=== PATIENT | female | born 1960 | race African-American/Black ===

== ENCOUNTER 2017-08-10 08:11 | Emergency (ER) | payer OTHER ==
[~2017-08-10] VITALS: Ht 170.2 cm; Wt 111.8 kg
[~2017-08-10 08:11] MED LIST: VITAMINS PO
[2017-08-10 08:16] VITALS: BP 129/106
== END 2017-08-10 10:32 | disposition home or self-care (01) ==
LOC: EMS 08:13
DX: K04.7 Periapical abscess without sinus (principal); I10 Essential (primary) hypertension; R11.2 Nausea with vomiting, unspecified; R19.7 Diarrhea, unspecified; R07.9 Chest pain, unspecified; G89.29 Other chronic pain; F17.210 Nicotine dependence, cigarettes, uncomplicated
CPT/HCPCS: 99283

== ENCOUNTER 2019-01-02 06:28 | Emergency (ER) | payer SELFPAY ==
[~2019-01-02] VITALS: Ht 170.2 cm; Wt 118.2 kg
[2019-01-02 07:23] LABS: BASOPHILS % (AUTO) 0.6 % (0.0-2.0); HEMATOCRIT 45.8 % (36-46); LYMPHOCYTES # (AUTO) 1.4 K/uL (1.0-4.8); LYMPHOCYTES % (AUTO) 20.3 % (22.0-44.0); MEAN CORPUSCULAR HEMOGLOBIN 28.6 pg (26.0-34.0); MEAN CORPUSCULAR HGB CONC 32.7 G/dL (31.0-37.0); MEAN CORPUSCULAR VOLUME 87 fL (80-100); MONOCYTES # (AUTO) 0.7 K/uL (0.1-1.0); MONOCYTES % (AUTO) 9.9 % (2.0-9.0); NEUTROPHILS # (AUTO) 4.6 K/uL (1.8-7.7); NEUTROPHILS % (AUTO) 68.2 % (40.0-70.0); PLATELET COUNT (AUTO) 272 K/uL (150-450); RED BLOOD CELL COUNT(AUTO) 5.24 MIL/uL (4.00-5.20); RED CELL DISTRIBUTION WIDTH 15.5 % (11.5-14.5)
[2019-01-02 07:32] LABS: ANION GAP 10 mmol/L (8-16); CALCIUM, TOTAL 9.6 mg/dL (8.8-10.5); CARBON DIOXIDE 25 mmol/L (22-29); CHLORIDE 105 mmol/L (98-107); CREATININE 0.88 mg/dL (0.60-1.30); GLOMERULAR FILTR. RATE CALC > 60 mL/min (>60); GLUCOSE,RANDOM 132 mg/dL (70-110); POTASSIUM 3.5 mmol/L (3.5-5.1); SODIUM SERUM 140 mmol/L (136-145); UREA NITROGEN, BLOOD 8 mg/dL (7-18)
[2019-01-02 07:39] LABS: ALANINE AMINOTRANSFERASE 26 U/L (12-78); ALBUMIN 3.7 g/dL (3.4-5.0); ALKALINE PHOSPHATASE 86 U/L (46-116); ASPARTATE AMINOTRANSFERASE 25 U/L (15-37); BILIRUBIN,TOTAL 0.6 mg/dL (0.1-1.0); TOTAL PROTEIN, SERUM 7.8 g/dL (6.4-8.2)
[2019-01-02 09:44] VITALS: BP 120/68
== END 2019-01-02 09:47 | disposition home or self-care (01) ==
LOC: EMS 06:29
DX: F43.9 Reaction to severe stress, unspecified (principal); M71.22 Synovial cyst of popliteal space [Baker], left knee; R60.0 Localized edema; F17.210 Nicotine dependence, cigarettes, uncomplicated
CPT/HCPCS: 36415; 80053; 83880; 85025; 93970; 99284; 99406; G0480

== ENCOUNTER 2019-03-19 08:03 | Inpatient (IN) | payer SELFPAY ==
[~2019-03-19] VITALS: Ht 180.3 cm; Wt 106.6 kg
[2019-03-19] VITALS (10 sets, daily range): BP systolic 111–154; BP diastolic 70–99
[2019-03-19] MEDS ORDERED: ATORVASTATIN CALCIUM 40 MG TABLET ONE (08:08)
[2019-03-19] MEDS ORDERED: TICAGRELOR 90 MG TABLET ONE (08:08)
[2019-03-19] MEDS ORDERED: IBUP-1506 PO (08:08)
[2019-03-19] MEDS ORDERED: HEPARIN SODIUM,PORCINE 5,000 UNITS/ML VIAL ONE (08:08)
[2019-03-19] MEDS ORDERED: D5W IV ONE (08:09)
[2019-03-19] MEDS ORDERED: HEPARIN SODIUM IV ONE (08:09)
[2019-03-19] MEDS ORDERED: TICAGRELOR 90 MG TABLET PO ONE (08:15)
[2019-03-19] MEDS ORDERED: MORPHINE SULFATE 2 MG/ML SYRINGE IVP ONE ×2 (08:15→08:20)
[2019-03-19] MEDS ORDERED: ATORVASTATIN CALCIUM 40 MG TABLET PO ONE (08:15)
[2019-03-19] MEDS ORDERED: NITROGLYCERIN 50 MG/D5% WATER 250 ML IV PRN (08:15)
[2019-03-19] MEDS ORDERED: SODIUM CHLORIDE 0.9% 1,000 ML IV ONE (08:15)
[2019-03-19] MEDS ORDERED: HEPARIN SODIUM,PORCINE 5,000 UNITS/ML VIAL IVP ONE (08:15)
[2019-03-19] MEDS ORDERED: FentaNYL CITRATE-PF 100 MCG/2 ML VIAL ONE (08:16)
[2019-03-19] MEDS ORDERED: MIDAZOLAM HCL 2 MG/2 ML VIAL ONE (08:16)
[2019-03-19] MEDS ORDERED: MORPHINE SULFATE 4 MG/ML SYRINGE ONE (08:16)
[2019-03-19] MEDS ORDERED: SODIUM BICARBONATE 50 MEQ/50 ML VIAL ONE (08:17)
[2019-03-19] MEDS ORDERED: LIDOCAINE/PF 1% 30 ML VIAL ONE (08:17)
[2019-03-19 08:18] LABS: BASOPHILS % (AUTO) 0.7 % (0.0-2.0); EOSINOPHILS % (AUTO) 1.9 % (1.0-6.0); HEMATOCRIT 42.4 % (36-46); HEMOGLOBIN 14.4 g/dL (12.0-16.0); LYMPHOCYTES # (AUTO) 2.8 K/uL (1.0-4.8); LYMPHOCYTES % (AUTO) 39.3 % (22.0-44.0); MEAN CORPUSCULAR HEMOGLOBIN 29.5 pg (26.0-34.0); MEAN CORPUSCULAR HGB CONC 33.8 G/dL (31.0-37.0); MEAN CORPUSCULAR VOLUME 87 fL (80-100); MONOCYTES % (AUTO) 13.7 % (2.0-9.0); NEUTROPHILS # (AUTO) 3.1 K/uL (1.8-7.7); NEUTROPHILS % (AUTO) 44.4 % (40.0-70.0); PLATELET COUNT (AUTO) 271 K/uL (150-450); RED BLOOD CELL COUNT(AUTO) 4.87 MIL/uL (4.00-5.20); RED CELL DISTRIBUTION WIDTH 14.9 % (11.5-14.5)
[2019-03-19] MEDS ORDERED: IOHEXOL 300 MG/ML 150 ML VIAL ONE (08:18)
[2019-03-19] MEDS ORDERED: IOHEXOL 300 MG/ML 100 ML VIAL ONE (08:18)
[2019-03-19] MEDS ORDERED: HEPARIN SODIUM 1000 UNITS/NS 1,000 ML ONE (08:18)
[2019-03-19] MEDS ORDERED: VERAPAMIL HCL 2.5 MG/ML 2 ML VIAL ONE (08:19)
[2019-03-19] MEDS ORDERED: HEPARIN SODIUM,PORCINE 1,000 UNITS/ML 10 ML VIAL ONE (08:19)
[2019-03-19] MEDS ORDERED: PHENYLEPHRINE 200 MG/D5%-WATER 250 ML IV PRN (08:30)
[2019-03-19 08:35] LABS: ANION GAP 11 mmol/L (8-16); CARBON DIOXIDE 26 mmol/L (22-29); CHLORIDE 104 mmol/L (98-107); CREATININE 0.84 mg/dL (0.60-1.30); GLOMERULAR FILTR. RATE CALC > 60 mL/min (>60); GLUCOSE,RANDOM 165 mg/dL (70-110); POTASSIUM 3.7 mmol/L (3.5-5.1); SODIUM SERUM 141 mmol/L (136-145); UREA NITROGEN, BLOOD 11 mg/dL (7-18)
[2019-03-19] MEDS ORDERED: HEPARIN SODIUM 2,000 UNITS in HEPARIN SODIUM 1000 UNITS/NS 1,000 ML IARTER ONE (08:44)
[2019-03-19] MEDS ORDERED: SODIUM CHLORIDE 0.9% 500 ML IV ONE (08:44)
[2019-03-19] MEDS ORDERED: LIDOCAINE 1% 30 ML/SOD BICARB 8.4% 4 ML SQ ONE (08:44)
[2019-03-19 08:49] LABS: B-TYPE NATRIURETIC PEPTIDE 94 pg/mL (0-100)
[2019-03-19] MEDS ORDERED: IOHEXOL 300 MG/ML 150 ML VIAL IARTER ONE (08:49)
[2019-03-19 08:58] LABS: ALANINE AMINOTRANSFERASE 12 U/L (12-78); ALBUMIN 3.2 g/dL (3.4-5.0); ALKALINE PHOSPHATASE 80 U/L (46-116); ASPARTATE AMINOTRANSFERASE 14 U/L (15-37); BILIRUBIN,TOTAL 0.4 mg/dL (0.1-1.0); CHOLESTEROL 213 mg/dL (131-200); CREATINE KINASE, TOTAL ONLY 90 U/L (26-192); FREE T4 (FREE THYROXINE) 1.02 ng/dL (0.76-1.46); HDL CHOLESTEROL 53 mg/dL (40-60); LDL CHOL (CALC.) 144 mg/dL (0-130); LIPASE 83 U/L (73-393); THYROID STIMULATING HORMONE 1.51 uIU/mL (0.36-3.74); TOTAL PROTEIN, SERUM 7.1 g/dL (6.4-8.2); TRIGLYCERIDES 80 mg/dL (15-150)
[2019-03-19 09:08] LABS: LACTIC ACID 2.1 mmol/L (0.4-2.0)
[2019-03-19] MEDS ORDERED: SODIUM CHLORIDE 0.9% 100 ML ONE (09:53)
[2019-03-19] MEDS ORDERED: IOVERSOL 350 MG/ML 100 ML VIAL ONE (09:53)
[2019-03-19] MEDS ORDERED: MAGNESIUM HYDROXIDE SUSPENSION 30 ML UDCUP PO PRN (10:30)
[2019-03-19] MEDS ORDERED: ALBUTEROL SULFATE 2.5 MG/0.5 ML NEB SOLUTION NEB PRN (10:30)
[2019-03-19] MEDS ORDERED: ACETAMINOPHEN 325 MG TABLET PO PRN (10:30)
[2019-03-19] MEDS ORDERED: IPRATROPIUM BROMIDE 0.5 MG/2.5 ML NEB SOLUTION NEB PRN (10:30)
[2019-03-19] MEDS ORDERED: DOCUSATE SODIUM 100 MG CAPSULE PO PRN (10:30)
[2019-03-19] MEDS ORDERED: BISACODYL 10 MG RECTAL RECTAL SUPPOSITORY PR PRN (10:30)
[2019-03-19] MEDS ORDERED: ONDANSETRON HCL 4 MG/2 ML VIAL IVP PRN (10:30)
[2019-03-19] MEDS: MORPHINE SULFATE 2 MG/ML SYRINGE IVP PRN (11:32)
[2019-03-19] MEDS: SODIUM CHLORIDE 0.9% 1,000 ML IV SCH ×2 (11:34→23:44)
[2019-03-19] MEDS ORDERED: FentaNYL CITRATE-PF 100 MCG/2 ML VIAL IVP ONE (12:00)
[2019-03-19] MEDS ORDERED: MIDAZOLAM HCL 2 MG/2 ML VIAL IVP ONE (12:00)
[2019-03-19 13:02] LABS: APPEARANCE,URINE CLEAR (CLEAR); BILIRUBIN,URINE NEGATIVE (NEGATIVE); GLUCOSE, URINE (UA) 250 mg/dL (NEGATIVE); KETONES,URINE NEGATIVE (NEGATIVE); LEUKOCYTE ESTERASE ,URINE NEGATIVE (NEGATIVE); NITRATE,URINE NEGATIVE (NEGATIVE); OCCULT BLOOD,URINE NEGATIVE (NEGATIVE); PH,URINE 7.5 (5.0-8.0); PROTEIN,URINE NEGATIVE (NEGATIVE); UROBILINOGEN,URINE 0.2 mg/dL (<=1.0)
[2019-03-19 13:09] LABS: AMPHET/METH SCREEN,URINE NEGATIVE (NEGATIVE); BARBITURATE SCREEN, URINE NEGATIVE (NEGATIVE); BENZODIAZEPINES SCREEN,URINE POSITIVE (NEGATIVE); CANNABINOID SCREEN,URINE NEGATIVE (NEGATIVE); COCAINE SCREEN,URINE POSITIVE (NEGATIVE); METHADONE SCREEN, URINE NEGATIVE (NEGATIVE); OPIATE SCREEN,URINE POSITIVE (NEGATIVE)
[2019-03-19] MEDS ORDERED: ETOMIDATE 2 MG/ML 10 ML VIAL IV ONE (13:13)
[2019-03-19] MEDS ORDERED: PHENYLEPHRINE HCL 10 MG/ML VIAL IVP ONE (13:13)
[2019-03-19] MEDS ORDERED: EPHEDrine SULFATE 50 MG/ML VIAL IM ONE (13:13)
[2019-03-19] MEDS ORDERED: 0.9% SODIUM CHLORIDE 10 ML VIAL IV ONE (13:13)
[2019-03-19 13:17] LABS: PHENCYCLIDINE SCREEN,URINE NEGATIVE (NEGATIVE)
[2019-03-19 13:49] LABS: BACTERIA,URINE None Seen /HPF (None Seen); RBC,URINE None Seen /HPF (0-2); RENAL EPITHELIAL CELLS,URINE Few /LPF (None Seen); WBC,URINE None Seen /HPF (0-5)
[2019-03-19] MEDS ORDERED: IPRATROPIUM BROMIDE 0.5 MG/2.5 ML NEB SOLUTION NEB SCH (14:00)
[2019-03-19] MEDS: CefTRIAXone 1 GM/DEXTROSE 50 ML IV SCH (14:00)
[2019-03-19] MEDS ORDERED: HydrALAZINE HCL 20 MG/ML VIAL IVP PRN (14:00)
[2019-03-19] MEDS ORDERED: INFLUENZA VIRUS VACCINE QVS 2019-20 (3YR+)/PF 60 MCG/0.5 ML SYRINGE IM ONE (15:15)
[2019-03-19] MEDS ORDERED: PNEUMOCOCCAL VACCINE POLYVALENT 0.5 ML VIAL [PPSV23] IM ONE (15:15)
[2019-03-19] MEDS: METOPROLOL SUCCINATE 50 MG ER TABLET PO SCH (16:12)
[2019-03-19] MEDS: MethylPREDNISolone SOD SUCC 125 MG/2 ML VIAL IVP SCH ×3 (16:13→23:43)
[2019-03-19] MEDS: DOXYCYCLINE HYCLATE 100 MG CAPSULE PO SCH ×2 (16:15→21:04)
[2019-03-19] MEDS: OxyCODONE HCL/ACETAMINOPHEN 5-325 MG TABLET PO PRN (16:16)
[2019-03-19] MEDS: ALBUTEROL SULFATE 2.5 MG/0.5 ML NEB SOLUTION NEB SCH (20:50)
[2019-03-19] MEDS: IPRATROPIUM BROMIDE 0.5 MG/2.5 ML NEB SOLUTION NEB SCH (20:50)
[2019-03-19] MEDS: FAMOTIDINE 20 MG TABLET PO SCH (21:04)
[2019-03-19] MEDS: HEPARIN SODIUM,PORCINE 5,000 UNITS/ML VIAL SQ SCH (21:04)
[2019-03-20] MEDS: IPRATROPIUM BROMIDE 0.5 MG/2.5 ML NEB SOLUTION NEB SCH ×6 (00:16→23:40)
[2019-03-20] MEDS: ALBUTEROL SULFATE 2.5 MG/0.5 ML NEB SOLUTION NEB PRN ×2 (00:17→15:41)
[2019-03-20 00:47] VITALS: BP 142/96
[2019-03-20] MEDS: ALBUTEROL SULFATE 2.5 MG/0.5 ML NEB SOLUTION NEB SCH ×5 (02:00→23:41)
[2019-03-20] MEDS: OxyCODONE HCL/ACETAMINOPHEN 5-325 MG TABLET PO PRN (03:39)
[2019-03-20 05:12] VITALS: BP 152/89
[2019-03-20] MEDS: MethylPREDNISolone SOD SUCC 125 MG/2 ML VIAL IVP SCH (06:01)
[2019-03-20] MEDS: METOPROLOL SUCCINATE 50 MG ER TABLET PO SCH (08:30)
[2019-03-20] MEDS: DOXYCYCLINE HYCLATE 100 MG CAPSULE PO SCH ×2 (08:30→20:05)
[2019-03-20] MEDS: FAMOTIDINE 20 MG TABLET PO SCH ×2 (08:30→20:05)
[2019-03-20] MEDS: HEPARIN SODIUM,PORCINE 5,000 UNITS/ML VIAL SQ SCH ×2 (08:30→20:06)
[2019-03-20] MEDS: MORPHINE SULFATE 2 MG/ML SYRINGE IVP PRN ×2 (08:31→18:42)
[2019-03-20 08:33] VITALS: BP 139/69
[2019-03-20 08:54] LABS: BASOPHILS % (AUTO) 0.2 % (0.0-2.0); EOSINOPHILS % (AUTO) 0 % (1.0-6.0); HEMATOCRIT 44.4 % (36-46); LYMPHOCYTES # (AUTO) 0.6 K/uL (1.0-4.8); LYMPHOCYTES % (AUTO) 11.4 % (22.0-44.0); MEAN CORPUSCULAR HEMOGLOBIN 29.7 pg (26.0-34.0); MEAN CORPUSCULAR HGB CONC 33.9 G/dL (31.0-37.0); MEAN CORPUSCULAR VOLUME 88 fL (80-100); MONOCYTES # (AUTO) 0.2 K/uL (0.1-1.0); MONOCYTES % (AUTO) 3.4 % (2.0-9.0); NEUTROPHILS # (AUTO) 4.8 K/uL (1.8-7.7); PLATELET COUNT (AUTO) 251 K/uL (150-450); RED BLOOD CELL COUNT(AUTO) 5.06 MIL/uL (4.00-5.20); RED CELL DISTRIBUTION WIDTH 15.4 % (11.5-14.5)
[2019-03-20 09:08] LABS: ANION GAP 10 mmol/L (8-16); CALCIUM, TOTAL 9.9 mg/dL (8.8-10.5); CARBON DIOXIDE 23 mmol/L (22-29); CHLORIDE 104 mmol/L (98-107); CREATININE 0.75 mg/dL (0.60-1.30); GLOMERULAR FILTR. RATE CALC > 60 mL/min (>60); GLUCOSE,RANDOM 204 mg/dL (70-110); POTASSIUM 3.8 mmol/L (3.5-5.1); SODIUM SERUM 137 mmol/L (136-145); UREA NITROGEN, BLOOD 7 mg/dL (7-18)
[2019-03-20 11:43] VITALS: BP 140/82
[2019-03-20] MEDS: MethylPREDNISolone SOD SUCC 40 MG/ML VIAL IVP SCH ×3 (12:40→23:37)
[2019-03-20] MEDS: SODIUM CHLORIDE 0.9% 1,000 ML IV SCH (12:40)
[2019-03-20] MEDS: CefTRIAXone 1 GM/DEXTROSE 50 ML IV SCH (12:41)
[2019-03-20] MEDS: NICOTINE 21 MG/24 HOUR PATCH TD SCH (12:41)
[2019-03-20] MEDS: LISINOPRIL 20 MG TABLET PO SCH (12:41)
[2019-03-20 17:06] VITALS: BP 124/67
[2019-03-20] MEDS ORDERED: ATORVASTATIN CALCIUM 20 MG TABLET PO SCH (21:00)
[2019-03-20 21:08] VITALS: BP 110/71
[2019-03-21 00:19] VITALS: BP 134/79
[2019-03-21] MEDS: SODIUM CHLORIDE 0.9% 1,000 ML IV SCH (02:42)
[2019-03-21] MEDS: MethylPREDNISolone SOD SUCC 40 MG/ML VIAL IVP SCH (05:36)
[2019-03-21 05:40] VITALS: BP 130/58
[2019-03-21] MEDS: IPRATROPIUM BROMIDE 0.5 MG/2.5 ML NEB SOLUTION NEB SCH ×2 (07:00→11:20)
[2019-03-21] MEDS: ALBUTEROL SULFATE 2.5 MG/0.5 ML NEB SOLUTION NEB SCH (07:23)
[2019-03-21 07:36] VITALS: BP 125/68
[2019-03-21 07:44] LABS: EOSINOPHILS % (AUTO) 0 % (1.0-6.0); HEMATOCRIT 41.6 % (36-46); HEMOGLOBIN 13.6 g/dL (12.0-16.0); LYMPHOCYTES # (AUTO) 0.7 K/uL (1.0-4.8); MEAN CORPUSCULAR HEMOGLOBIN 28.6 pg (26.0-34.0); MEAN CORPUSCULAR HGB CONC 32.8 G/dL (31.0-37.0); MEAN CORPUSCULAR VOLUME 87 fL (80-100); MONOCYTES # (AUTO) 0.7 K/uL (0.1-1.0); MONOCYTES % (AUTO) 6.7 % (2.0-9.0); NEUTROPHILS # (AUTO) 8.7 K/uL (1.8-7.7); PLATELET COUNT (AUTO) 245 K/uL (150-450); RED BLOOD CELL COUNT(AUTO) 4.76 MIL/uL (4.00-5.20); RED CELL DISTRIBUTION WIDTH 15.3 % (11.5-14.5)
[2019-03-21 07:45] LABS: NEUTROPHILS % (AUTO) 86.3 % (40.0-70.0)
[2019-03-21 08:01] LABS: ANION GAP 8 mmol/L (8-16); CALCIUM, TOTAL 9.3 mg/dL (8.8-10.5); CARBON DIOXIDE 25 mmol/L (22-29); CHLORIDE 106 mmol/L (98-107); CREATININE 0.76 mg/dL (0.60-1.30); GLOMERULAR FILTR. RATE CALC > 60 mL/min (>60); GLUCOSE,RANDOM 171 mg/dL (70-110); SODIUM SERUM 139 mmol/L (136-145); UREA NITROGEN, BLOOD 20 mg/dL (7-18)
[2019-03-21] MEDS: METOPROLOL SUCCINATE 50 MG ER TABLET PO SCH (08:37)
[2019-03-21] MEDS: FAMOTIDINE 20 MG TABLET PO SCH (08:37)
[2019-03-21] MEDS: NICOTINE 21 MG/24 HOUR PATCH TD SCH (08:38)
[2019-03-21] MEDS: LISINOPRIL 20 MG TABLET PO SCH (08:38)
[2019-03-21] MEDS: HEPARIN SODIUM,PORCINE 5,000 UNITS/ML VIAL SQ SCH (08:38)
[2019-03-21] MEDS: DOXYCYCLINE HYCLATE 100 MG CAPSULE PO SCH (08:38)
[2019-03-21] MEDS ORDERED: PredniSONE 20 MG TABLET PO SCH (10:30)
[2019-03-21 10:47] VITALS: BP 140/77
[2019-03-21] MEDS ORDERED: METO-558 PO (13:53)
[2019-03-21] MEDS ORDERED: IPRA3AMP24 IH (13:55)
[2019-03-21] MEDS ORDERED: FAMO20 PO (13:56)
[2019-03-21] MEDS ORDERED: ATOR20TA86 PO (13:56)
[2019-03-21] MEDS ORDERED: LISI-662 PO (13:59)
[2019-03-21] MEDS ORDERED: PRED10TA3 PO (14:04)
[2019-03-21] MEDS ORDERED: PRED20TA3 PO ×2 (14:04→14:05)
[2019-03-21] MEDS ORDERED: PRED5TAB PO (14:05)
[2019-03-21] MEDS ORDERED: CEPH250 PO (14:06)
[2019-03-21] MEDS ORDERED: DOXY150T5 PO (14:07)
== END 2019-03-21 13:14 | disposition home or self-care (01) | DRG 190 ==
LOC: EMS 08:04 → ICU 08:26 → 5S 17:50
PROVIDERS: ADMIT Internal Medicine; ATTEND Internal Medicine
PROC: 4A023N7 Measurement of Cardiac Sampling and Pressure, Left Heart, Percutaneous Approach (ICD-10-PCS; principal; 2019-03-19)
PROC: B2111ZZ Fluoroscopy of Multiple Coronary Arteries using Low Osmolar Contrast (ICD-10-PCS; 2019-03-19)
PROC: B2151ZZ Fluoroscopy of Left Heart using Low Osmolar Contrast (ICD-10-PCS; 2019-03-19)
DX: J43.9 Emphysema, unspecified (principal); J18.9 Pneumonia, unspecified organism; I10 Essential (primary) hypertension; E66.9 Obesity, unspecified; I95.9 Hypotension, unspecified; F17.210 Nicotine dependence, cigarettes, uncomplicated; G89.29 Other chronic pain; M25.569 Pain in unspecified knee; Z68.32 Body mass index [BMI] 32.0-32.9, adult; Z79.82 Long term (current) use of aspirin
CPT/HCPCS: 71260; 72193; 74160; 80307; 83605; 83735; 84145; 84439; 84443; 86850; 86900; 86901; 87081; 93005; 93306; 94640; J0696; J1644; J2250; J2270; J2370; J2920; J2930; J3010; J3490; J7030; J7050; Q9967

== ENCOUNTER 2019-03-27 12:25 | Emergency (ER) | payer MEDICAID ==
[~2019-03-27] VITALS: Ht 167.6 cm; Wt 106.0 kg
[~2019-03-27 12:25] MED LIST changes: +ATOR20TA86 PO; +CEPH250 PO; +DOXY150T5 PO; +FAMO20 PO; +IPRA3AMP24 IH; +LISI-662 PO; +METO-558 PO; +PRED10TA3 PO; +PRED20TA3 PO; +PRED5TAB PO; -VITAMINS PO
[2019-03-27] MEDS ORDERED: 0.9% SODIUM CHLORIDE 5 ML NEB SOLUTION NEB ONE ×5 (12:58→13:00)
[2019-03-27] MEDS ORDERED: IPRATROPIUM BROMIDE 0.5 MG/2.5 ML NEB SOLUTION NEB ONE (13:00)
[2019-03-27] MEDS ORDERED: ALBUTEROL SULFATE 5 MG/ML 20 ML NEB SOLN [BULK] NEB ONE (13:00)
[2019-03-27 13:40] LABS: BASOPHILS % (AUTO) 0.9 % (0.0-2.0); HEMATOCRIT 42.6 % (36-46); HEMOGLOBIN 14.1 g/dL (12.0-16.0); LYMPHOCYTES % (AUTO) 36.6 % (22.0-44.0); MEAN CORPUSCULAR HEMOGLOBIN 29.1 pg (26.0-34.0); MEAN CORPUSCULAR HGB CONC 33.2 G/dL (31.0-37.0); MEAN CORPUSCULAR VOLUME 88 fL (80-100); MONOCYTES # (AUTO) 0.5 K/uL (0.1-1.0); MONOCYTES % (AUTO) 9.7 % (2.0-9.0); NEUTROPHILS # (AUTO) 2.8 K/uL (1.8-7.7); NEUTROPHILS % (AUTO) 49.8 % (40.0-70.0); PLATELET COUNT (AUTO) 240 K/uL (150-450); RED BLOOD CELL COUNT(AUTO) 4.86 MIL/uL (4.00-5.20); RED CELL DISTRIBUTION WIDTH 15.3 % (11.5-14.5)
[2019-03-27 13:52] LABS: ANION GAP 8 mmol/L (8-16); CALCIUM, TOTAL 8.5 mg/dL (8.8-10.5); CARBON DIOXIDE 29 mmol/L (22-29); CHLORIDE 107 mmol/L (98-107); CREATININE 0.83 mg/dL (0.60-1.30); GLOMERULAR FILTR. RATE CALC > 60 mL/min (>60); GLUCOSE,RANDOM 182 mg/dL (70-110); POTASSIUM 3.3 mmol/L (3.5-5.1); SODIUM SERUM 144 mmol/L (136-145); UREA NITROGEN, BLOOD 11 mg/dL (7-18)
[2019-03-27 13:57] LABS: ALANINE AMINOTRANSFERASE 18 U/L (12-78); ALBUMIN 3.3 g/dL (3.4-5.0); ALKALINE PHOSPHATASE 83 U/L (46-116); ASPARTATE AMINOTRANSFERASE 13 U/L (15-37); BILIRUBIN,TOTAL 0.4 mg/dL (0.1-1.0)
[2019-03-27] MEDS ORDERED: POTASSIUM CHLORIDE 20 MEQ ER TABLET PO ONE (14:00)
[2019-03-27 14:04] LABS: B-TYPE NATRIURETIC PEPTIDE 69 pg/mL (0-100)
[2019-03-27] MEDS ORDERED: ALBUTEROL SULFATE HFA 90 MCG/PUFF 8 GM INHALER IH ONE (15:15)
[2019-03-27 15:18] VITALS: BP 138/76
== END 2019-03-27 15:09 | disposition home or self-care (01) ==
LOC: EMS 12:26
DX: J44.1 Chronic obstructive pulmonary disease with (acute) exacerbation (principal); F17.210 Nicotine dependence, cigarettes, uncomplicated; F11.10 Opioid abuse, uncomplicated; E78.00 Pure hypercholesterolemia, unspecified; I11.0 Hypertensive heart disease with heart failure; I50.9 Heart failure, unspecified; G89.29 Other chronic pain; Z79.899 Other long term (current) drug therapy
CPT/HCPCS: 87040; 93005; 94640; 94644; 99406; J3535

== ENCOUNTER 2020-10-18 04:33 | Emergency (ER) | payer MEDICAID, OTHER ==
[~2020-10-18] VITALS: Ht 170.2 cm; Wt 87.3 kg
[~2020-10-18 04:33] MED LIST changes: -LISI-662 PO; +LISI-894 PO
[2020-10-18 06:05] VITALS: BP 145/77
[2020-10-18] MEDS ORDERED: KETOROLAC TROMETHAMINE 60 MG/2 ML VIAL IM ONE (06:30)
[2020-10-18] MEDS ORDERED: METHOCARBAMOL 500 MG TABLET PO ONE (06:30)
== END 2020-10-18 07:52 | disposition home or self-care (01) ==
LOC: EMS 04:34
DX: S39.012A Strain of muscle, fascia and tendon of lower back, initial encounter (principal); M25.562 Pain in left knee; M25.561 Pain in right knee; I11.0 Hypertensive heart disease with heart failure; I50.9 Heart failure, unspecified; E78.00 Pure hypercholesterolemia, unspecified; F17.210 Nicotine dependence, cigarettes, uncomplicated; Z79.899 Other long term (current) drug therapy; V49.9XXA Car occupant (driver) (passenger) injured in unspecified traffic accident, initial encounter; Y93.89 Activity, other specified; Y92.488 Other paved roadways as the place of occurrence of the external cause; Y99.8 Other external cause status
CPT/HCPCS: 72100; 96372; 99283; J1885

== ENCOUNTER 2020-10-31 16:39 | Emergency (ER) | payer OTHER ==
[~2020-10-31] VITALS: Ht 170.2 cm; Wt 78.6 kg
[2020-10-31 16:45] VITALS: BP 131/69
[2020-10-31] MEDS ORDERED: METH-659 PO (16:53)
[2020-10-31] MEDS ORDERED: IBUP-2071 PO (16:53)
== END 2020-10-31 17:30 | disposition left against medical advice (07) ==
LOC: EMS 16:40
DX: R68.84 Jaw pain (principal); Z53.21 Procedure and treatment not carried out due to patient leaving prior to being seen by health care provider

== ENCOUNTER 2020-11-01 02:44 | Emergency (ER) | payer OTHER ==
[~2020-11-01] VITALS: Ht 160 cm; Wt 78.6 kg
[~2020-11-01 02:44] MED LIST changes: -ATOR20TA86 PO; -CEPH250 PO; -DOXY150T5 PO; -FAMO20 PO; +IBUP-2071 PO; -LISI-894 PO; +METH-659 PO; -METO-558 PO; -PRED10TA3 PO; -PRED20TA3 PO; -PRED5TAB PO
[2020-11-01 05:30] VITALS: BP 132/75
== END 2020-11-01 05:53 | disposition home or self-care (01) ==
LOC: EMS 02:46
DX: S00.83XA Contusion of other part of head, initial encounter (principal); K08.89 Other specified disorders of teeth and supporting structures; I11.0 Hypertensive heart disease with heart failure; I50.9 Heart failure, unspecified; E78.00 Pure hypercholesterolemia, unspecified; F17.210 Nicotine dependence, cigarettes, uncomplicated; F12.90 Cannabis use, unspecified, uncomplicated; W01.0XXA Fall on same level from slipping, tripping and stumbling without subsequent striking against object, initial encounter; Y93.89 Activity, other specified; Y92.89 Other specified places as the place of occurrence of the external cause; Y99.8 Other external cause status
CPT/HCPCS: 99282; Z7502

== ENCOUNTER 2021-02-12 06:36 | Emergency (ER) | payer OTHER ==
[~2021-02-12] VITALS: Ht 170.2 cm; Wt 72.7 kg
[2021-02-12] MEDS ORDERED: BACITRACIN 0.9 GM PACKET OINTMENT TP ONE (07:30)
[2021-02-12] MEDS ORDERED: PERTUSS(ACELL),DIPH,TET VAC/PF 0.5 ML SYRINGE IM. ONE (07:30)
[2021-02-12 08:52] VITALS: BP 117/51
== END 2021-02-12 08:53 | disposition home or self-care (01) ==
LOC: EMS 06:37
DX: L03.011 Cellulitis of right finger (principal); I11.0 Hypertensive heart disease with heart failure; I50.9 Heart failure, unspecified; E78.00 Pure hypercholesterolemia, unspecified; G89.29 Other chronic pain; F17.210 Nicotine dependence, cigarettes, uncomplicated; F12.90 Cannabis use, unspecified, uncomplicated
CPT/HCPCS: 90471; 90715; 99283

== ENCOUNTER 2021-02-22 01:36 | Emergency (ER) | payer OTHER ==
[~2021-02-22] VITALS: Ht 170.2 cm; Wt 85.0 kg
[2021-02-22] MEDS ORDERED: ACETAMINOPHEN 500 MG TABLET ONE (03:23)
[2021-02-22] MEDS ORDERED: ACETAMINOPHEN 500 MG TABLET PO ONE (03:30)
[2021-02-22] MEDS ORDERED: SULFAMETHOX/TRIMETH DS 800-160 MG/TABLET PO ONE (04:45)
[2021-02-22] MEDS ORDERED: CEPHALEXIN MONOHYDRATE 500 MG CAPSULE PO ONE (04:45)
[2021-02-22 05:00] VITALS: BP 152/87
== END 2021-02-22 05:32 | disposition home or self-care (01) ==
LOC: EMS 01:36
DX: L02.511 Cutaneous abscess of right hand (principal)
CPT/HCPCS: 26010; 99284; 73140-TC; Z7502; Z7610

== ENCOUNTER 2021-02-26 03:07 | Emergency (ER) | payer OTHER ==
[~2021-02-26] VITALS: Ht 170.2 cm; Wt 87.0 kg
[2021-02-26] MEDS ORDERED: CEPHALEXIN MONOHYDRATE 500 MG CAPSULE PO ONE (06:30)
[2021-02-26] MEDS ORDERED: HYDROCODONE/ACETAMINOPHEN 5-325 MG TABLET PO ONE (06:30)
[2021-02-26] MEDS ORDERED: DOXYCYCLINE HYCLATE 100 MG TABLET PO ONE (06:30)
[2021-02-26] MEDS ORDERED: LIDOCAINE 1% 10 ML VIAL PERC ONE (06:30)
[2021-02-26 07:13] VITALS: BP 129/74
== END 2021-02-26 07:40 | disposition home or self-care (01) ==
LOC: EMS 03:08
DX: L02.512 Cutaneous abscess of left hand (principal); I11.0 Hypertensive heart disease with heart failure; I50.9 Heart failure, unspecified; E78.00 Pure hypercholesterolemia, unspecified; F12.90 Cannabis use, unspecified, uncomplicated; F17.210 Nicotine dependence, cigarettes, uncomplicated; Z79.899 Other long term (current) drug therapy
CPT/HCPCS: 26010; 99284; J3490

== ENCOUNTER 2021-09-30 14:04 | Emergency (ER) | payer OTHER ==
[~2021-09-30] VITALS: Ht 170.2 cm; Wt 77.3 kg
[2021-09-30 15:00] LABS: BASOPHILS % (AUTO) 1.3 % (0.0-2.0); HEMATOCRIT 39.3 % (36-46); HEMOGLOBIN 13.2 g/dL (12.0-16.0); LYMPHOCYTES # (AUTO) 1.7 K/uL (1.0-4.8); LYMPHOCYTES % (AUTO) 31.8 % (22.0-44.0); MEAN CORPUSCULAR HEMOGLOBIN 28.2 pg (26.0-34.0); MEAN CORPUSCULAR HGB CONC 33.5 G/dL (31.0-37.0); MEAN CORPUSCULAR VOLUME 84 fL (80-100); MONOCYTES # (AUTO) 0.5 K/uL (0.1-1.0); MONOCYTES % (AUTO) 9.1 % (2.0-9.0); NEUTROPHILS % (AUTO) 54.8 % (40.0-70.0); PLATELET COUNT (AUTO) 310 K/uL (150-450); RED BLOOD CELL COUNT(AUTO) 4.68 MIL/uL (4.00-5.20); RED CELL DISTRIBUTION WIDTH 16.1 % (11.5-14.5)
[2021-09-30 15:14] LABS: COVID AG,FIA SOURCE NASOPHARYNGEAL
[2021-09-30 15:14] LABS: ANION GAP 10 mmol/L (8-16); CALCIUM, TOTAL 9.5 mg/dL (8.8-10.5); CARBON DIOXIDE 29 mmol/L (22-29); CHLORIDE 103 mmol/L (98-107); CREATININE 0.75 mg/dL (0.60-1.30); GLOMERULAR FILTR. RATE CALC > 60 mL/min (>60); GLUCOSE,RANDOM 88 mg/dL (70-110); POTASSIUM 3.8 mmol/L (3.5-5.1); SODIUM SERUM 142 mmol/L (136-145); UREA NITROGEN, BLOOD 13 mg/dL (7-18)
[2021-09-30 15:19] LABS: ALANINE AMINOTRANSFERASE 18 U/L (12-78); ALBUMIN 3.7 g/dL (3.4-5.0); ALKALINE PHOSPHATASE 83 U/L (46-116); ASPARTATE AMINOTRANSFERASE 16 U/L (15-37); BILIRUBIN,TOTAL 0.4 mg/dL (0.1-1.0); TOTAL PROTEIN, SERUM 8.2 g/dL (6.4-8.2)
[2021-09-30] MEDS ORDERED: LORazepam 1 MG TABLET PO ONE (16:15)
[2021-09-30 16:30] VITALS: BP 134/83
== END 2021-09-30 16:52 | disposition home or self-care (01) ==
LOC: EMS 14:04
DX: F32.A Depression, unspecified (principal); F41.9 Anxiety disorder, unspecified; I11.0 Hypertensive heart disease with heart failure; I50.9 Heart failure, unspecified; E78.00 Pure hypercholesterolemia, unspecified; M25.569 Pain in unspecified knee; F17.210 Nicotine dependence, cigarettes, uncomplicated; F12.90 Cannabis use, unspecified, uncomplicated; Z20.822 Contact with and (suspected) exposure to COVID-19
CPT/HCPCS: 36415; 80053; 85025; 87426; 99283; G0480; 99284

== ENCOUNTER 2022-01-14 03:29 | Inpatient (IN) | payer MEDICAID, OTHER ==
[~2022-01-14] VITALS: Ht 167.6 cm; Wt 97.9 kg
[2022-01-14 04:13] LABS: BASOPHILS % (AUTO) 0.9 % (0.0-2.0); EOSINOPHILS % (AUTO) 1.8 % (1.0-6.0); HEMATOCRIT 38.4 % (36-46); LYMPHOCYTES % (AUTO) 23.8 % (22.0-44.0); MEAN CORPUSCULAR HEMOGLOBIN 28.8 pg (26.0-34.0); MEAN CORPUSCULAR HGB CONC 33.8 G/dL (31.0-37.0); MEAN CORPUSCULAR VOLUME 85 fL (80-100); MONOCYTES # (AUTO) 0.3 K/uL (0.1-1.0); MONOCYTES % (AUTO) 8.1 % (2.0-9.0); NEUTROPHILS # (AUTO) 2.7 K/uL (1.8-7.7); NEUTROPHILS % (AUTO) 65.4 % (40.0-70.0); PLATELET COUNT (AUTO) 247 K/uL (150-450); RED CELL DISTRIBUTION WIDTH 14.4 % (11.5-14.5)
[2022-01-14 04:22] LABS: ANION GAP 10 mmol/L (8-16); CALCIUM, TOTAL 8.4 mg/dL (8.8-10.5); CARBON DIOXIDE 26 mmol/L (22-29); CHLORIDE 106 mmol/L (98-107); CREATININE 0.86 mg/dL (0.60-1.30); GLOMERULAR FILTR. RATE CALC > 60 mL/min (>60); GLUCOSE,RANDOM 106 mg/dL (70-110); SODIUM SERUM 142 mmol/L (136-145); UREA NITROGEN, BLOOD 10 mg/dL (7-18)
[2022-01-14 04:28] LABS: ALANINE AMINOTRANSFERASE 17 U/L (12-78); ALBUMIN 3.2 g/dL (3.4-5.0); ALKALINE PHOSPHATASE 74 U/L (46-116); ASPARTATE AMINOTRANSFERASE 15 U/L (15-37); BILIRUBIN,TOTAL 0.4 mg/dL (0.1-1.0); TOTAL PROTEIN, SERUM 7.3 g/dL (6.4-8.2)
[2022-01-14] MEDS ORDERED: ZOLPIDEM TARTRATE 10 MG TABLET PO PRN (09:00)
[2022-01-14] MEDS ORDERED: PROMETHAZINE HCL 25 MG TABLET PO PRN (09:00)
[2022-01-14] MEDS: THIAMINE 100 MG TABLET PO SCH ×2 (09:00→09:21)
[2022-01-14] MEDS ORDERED: HydrOXYzine PAMOATE 50 MG CAPSULE PO PRN (09:00)
[2022-01-14] MEDS ORDERED: LOPERAMIDE HCL 2 MG CAPSULE PO PRN (09:00)
[2022-01-14] MEDS ORDERED: MAG HYDROX/AL HYDROX/SIMETH ES 30 ML SUSPENSION UDCUP PO PRN (09:00)
[2022-01-14] MEDS: FOLIC ACID 1 MG TABLET PO SCH ×2 (09:00→09:21)
[2022-01-14] MEDS: MULTIVITAMINS WITH MINERALS, THERAPEUTIC TABLET PO SCH ×2 (09:00→09:21)
[2022-01-14] MEDS ORDERED: TUBERCULIN, PURIFIED PROTEIN DERIVATIVE 5 TU/0.1 ML SYRINGE ID ONE (09:00)
[2022-01-14] MEDS ORDERED: ACETAMINOPHEN 325 MG TABLET PO PRN (09:00)
[2022-01-14] MEDS ORDERED: GuaiFENesin/D-METHORPHAN [SUGAR-FREE] 200-20MG/10 ML SYRUP UDCUP PO PRN (09:00)
[2022-01-14] MEDS ORDERED: MAGNESIUM HYDROXIDE SUSPENSION 30 ML UDCUP PO PRN (09:00)
[2022-01-14] MEDS: POTASSIUM CHLORIDE 20 MEQ ER TABLET PO ONE ×2 (09:15→09:22)
[2022-01-14 10:34] LABS: COVID AG,FIA SOURCE NASAL SWAB
[2022-01-14 11:04] LABS: AMPHET/METH SCREEN,URINE POSITIVE (NEGATIVE); BARBITURATE SCREEN, URINE NEGATIVE (NEGATIVE); BENZODIAZEPINES SCREEN,URINE NEGATIVE (NEGATIVE); CANNABINOID SCREEN,URINE NEGATIVE (NEGATIVE); COCAINE SCREEN,URINE POSITIVE (NEGATIVE); METHADONE SCREEN, URINE NEGATIVE (NEGATIVE); OPIATE SCREEN,URINE NEGATIVE (NEGATIVE)
[2022-01-14 11:05] LABS: PHENCYCLIDINE SCREEN,URINE NEGATIVE (NEGATIVE)
[2022-01-14 18:10] VITALS: BP 143/99
[2022-01-14] MEDS: MELATONIN 5 MG TABLET PO SCH (20:36)
[2022-01-14 20:48] VITALS: BP 127/82
[2022-01-14] MEDS ORDERED: OLANZapine 5 MG RAPDIS TABLET PO SCH (21:00)
[2022-01-15 08:16] VITALS: BP 128/66
[2022-01-15 08:38] LABS: HEMOGLOBIN A1C 5.4 % (3.8-5.6)
[2022-01-15 08:39] LABS: ANION GAP 8 mmol/L (8-16); CALCIUM, TOTAL 9.2 mg/dL (8.8-10.5); CARBON DIOXIDE 28 mmol/L (22-29); CHLORIDE 106 mmol/L (98-107); CREATININE 1.01 mg/dL (0.60-1.30); GLUCOSE,RANDOM 169 mg/dL (70-110); POTASSIUM 3.2 mmol/L (3.5-5.1); SODIUM SERUM 142 mmol/L (136-145); UREA NITROGEN, BLOOD 13 mg/dL (7-18)
[2022-01-15 08:40] LABS: GLOMERULAR FILTR. RATE CALC > 60 mL/min (>60)
[2022-01-15 08:59] LABS: CHOL/HDL RATIO 3.6 (3.9-5.7); THYROID STIMULATING HORMONE 1.28 uIU/mL (0.36-3.74)
[2022-01-15] MEDS: NALTREXONE HCL 50 MG TABLET PO SCH ×2 (11:07→11:10)
[2022-01-15] MEDS: THIAMINE 100 MG TABLET PO SCH ×2 (11:08→11:11)
[2022-01-15] MEDS: FLUoxetine HCL 20 MG CAPSULE PO SCH ×2 (11:08→11:10)
[2022-01-15] MEDS: FOLIC ACID 1 MG TABLET PO SCH (11:08)
[2022-01-15] MEDS: MULTIVITAMINS WITH MINERALS, THERAPEUTIC TABLET PO SCH (11:09)
[2022-01-15] MEDS: OMEGA-3/DHA/EPA/FISH OIL 1,000 MG CAPSULE PO SCH ×2 (11:09→11:10)
[2022-01-15 16:56] VITALS: BP 124/82
[2022-01-15] MEDS ORDERED: POTASSIUM CHLORIDE 20 MEQ ER TABLET PO ONE (18:15)
[2022-01-15] MEDS ORDERED: ALBUTEROL SULFATE HFA 90 MCG/PUFF 8 GM INHALER IH PRN (18:15)
[2022-01-15] MEDS: OLANZapine 10 MG RAPDIS TABLET PO SCH (20:35)
[2022-01-15] MEDS: MELATONIN 5 MG TABLET PO SCH (20:35)
[2022-01-16 08:29] VITALS: BP 157/97
[2022-01-16 08:30] LABS: ANION GAP 9 mmol/L (8-16); CALCIUM, TOTAL 8.7 mg/dL (8.8-10.5); CARBON DIOXIDE 30 mmol/L (22-29); CHLORIDE 106 mmol/L (98-107); CREATININE 0.82 mg/dL (0.60-1.30); GLUCOSE,RANDOM 121 mg/dL (70-110); POTASSIUM 3.8 mmol/L (3.5-5.1); SODIUM SERUM 145 mmol/L (136-145); UREA NITROGEN, BLOOD 12 mg/dL (7-18)
[2022-01-16 08:35] LABS: GLOMERULAR FILTR. RATE CALC > 60 mL/min (>60)
[2022-01-16] MEDS: OMEGA-3/DHA/EPA/FISH OIL 1,000 MG CAPSULE PO SCH (09:57)
[2022-01-16] MEDS: FOLIC ACID 1 MG TABLET PO SCH (09:57)
[2022-01-16] MEDS: THIAMINE 100 MG TABLET PO SCH ×2 (09:57→16:28)
[2022-01-16] MEDS: FLUoxetine HCL 20 MG CAPSULE PO SCH (09:57)
[2022-01-16] MEDS: NALTREXONE HCL 50 MG TABLET PO SCH (09:57)
[2022-01-16] MEDS: MULTIVITAMINS WITH MINERALS, THERAPEUTIC TABLET PO SCH (09:57)
[2022-01-16] MEDS ORDERED: CloNIDine HCL 0.1 MG TABLET PO PRN (10:00)
[2022-01-16 16:36] VITALS: BP 136/67
[2022-01-16] MEDS: MELATONIN 5 MG TABLET PO SCH (20:38)
[2022-01-16] MEDS: OLANZapine 10 MG RAPDIS TABLET PO SCH (20:38)
[2022-01-17 03:06] LABS: HEPATITIS C AB (EIA) 0.2 s/co ratio (0.0-0.9)
[2022-01-17] MEDS ORDERED: FLUoxetine HCL 20 MG CAPSULE PO SCH (09:00)
[2022-01-17 09:20] VITALS: BP 146/86
[2022-01-17] MEDS: NALTREXONE HCL 50 MG TABLET PO SCH (10:36)
[2022-01-17] MEDS: MULTIVITAMINS WITH MINERALS, THERAPEUTIC TABLET PO SCH (10:37)
[2022-01-17] MEDS: OMEGA-3/DHA/EPA/FISH OIL 1,000 MG CAPSULE PO SCH (10:37)
[2022-01-17] MEDS: FOLIC ACID 1 MG TABLET PO SCH (10:38)
[2022-01-17] MEDS: THIAMINE 100 MG TABLET PO SCH ×2 (10:38→17:22)
[2022-01-17 16:09] VITALS: BP 132/82
[2022-01-17] MEDS: OLANZapine 10 MG RAPDIS TABLET PO SCH (20:26)
[2022-01-17] MEDS: MELATONIN 5 MG TABLET PO SCH (20:26)
[2022-01-18] MEDS: NALTREXONE HCL 50 MG TABLET PO SCH (11:53)
[2022-01-18] MEDS: OMEGA-3/DHA/EPA/FISH OIL 1,000 MG CAPSULE PO SCH (11:57)
[2022-01-18] MEDS: FOLIC ACID 1 MG TABLET PO SCH (11:58)
[2022-01-18] MEDS: FLUoxetine HCL 20 MG CAPSULE PO SCH (11:58)
[2022-01-18] MEDS: THIAMINE 100 MG TABLET PO SCH ×2 (11:59→17:00)
[2022-01-18] MEDS: MULTIVITAMINS WITH MINERALS, THERAPEUTIC TABLET PO SCH (11:59)
[2022-01-18] MEDS: GABAPENTIN 400 MG CAPSULE PO SCH (18:00)
[2022-01-18] MEDS: MELATONIN 5 MG TABLET PO SCH (20:08)
[2022-01-18] MEDS: OLANZapine 10 MG RAPDIS TABLET PO SCH (20:08)
[2022-01-19 08:13] VITALS: BP 136/92
[2022-01-19] MEDS: OMEGA-3/DHA/EPA/FISH OIL 1,000 MG CAPSULE PO SCH (08:21)
[2022-01-19] MEDS: FLUoxetine HCL 20 MG CAPSULE PO SCH (08:21)
[2022-01-19] MEDS: NALTREXONE HCL 50 MG TABLET PO SCH (08:22)
[2022-01-19] MEDS: THIAMINE 100 MG TABLET PO SCH ×2 (08:22→16:19)
[2022-01-19] MEDS: FOLIC ACID 1 MG TABLET PO SCH (08:22)
[2022-01-19] MEDS: GABAPENTIN 400 MG CAPSULE PO SCH ×3 (08:22→16:19)
[2022-01-19] MEDS: MULTIVITAMINS WITH MINERALS, THERAPEUTIC TABLET PO SCH (08:22)
[2022-01-19 16:09] VITALS: BP 122/66
[2022-01-19] MEDS: MELATONIN 5 MG TABLET PO SCH (20:35)
[2022-01-19] MEDS: OLANZapine 10 MG RAPDIS TABLET PO SCH (20:35)
[2022-01-20 08:11] VITALS: BP 120/74
[2022-01-20] MEDS: NALTREXONE HCL 50 MG TABLET PO SCH (09:37)
[2022-01-20] MEDS: FOLIC ACID 1 MG TABLET PO SCH (09:37)
[2022-01-20] MEDS: OMEGA-3/DHA/EPA/FISH OIL 1,000 MG CAPSULE PO SCH (09:37)
[2022-01-20] MEDS: FLUoxetine HCL 20 MG CAPSULE PO SCH (09:37)
[2022-01-20] MEDS: MULTIVITAMINS WITH MINERALS, THERAPEUTIC TABLET PO SCH (09:37)
[2022-01-20] MEDS: THIAMINE 100 MG TABLET PO SCH ×2 (09:37→16:31)
[2022-01-20] MEDS: GABAPENTIN 400 MG CAPSULE PO SCH ×3 (09:37→16:31)
[2022-01-20 16:07] VITALS: BP_SYST 104; BP_SYST 107; BP_DIAS 56
[2022-01-20] MEDS: MELATONIN 5 MG TABLET PO SCH (20:19)
[2022-01-20] MEDS: OLANZapine 10 MG RAPDIS TABLET PO SCH (20:19)
[2022-01-21 08:23] VITALS: BP 109/54
[2022-01-21] MEDS: OMEGA-3/DHA/EPA/FISH OIL 1,000 MG CAPSULE PO SCH (09:35)
[2022-01-21] MEDS: LORazepam 2 MG TABLET PO PRN ×2 (09:35→19:14)
[2022-01-21] MEDS: FLUoxetine HCL 20 MG CAPSULE PO SCH (09:35)
[2022-01-21] MEDS: NALTREXONE HCL 50 MG TABLET PO SCH (09:35)
[2022-01-21] MEDS: MULTIVITAMINS WITH MINERALS, THERAPEUTIC TABLET PO SCH (09:35)
[2022-01-21] MEDS: GABAPENTIN 400 MG CAPSULE PO SCH ×3 (09:35→16:38)
[2022-01-21] MEDS: FOLIC ACID 1 MG TABLET PO SCH (09:35)
[2022-01-21] MEDS: THIAMINE 100 MG TABLET PO SCH ×2 (09:36→16:38)
[2022-01-21] MEDS: OLANZapine 5 MG RAPDIS TABLET PO PRN (09:36)
[2022-01-21 16:17] VITALS: BP 119/73
[2022-01-21] MEDS: OLANZapine 10 MG RAPDIS TABLET PO SCH (20:20)
[2022-01-21] MEDS: MELATONIN 5 MG TABLET PO SCH (20:20)
[2022-01-22 06:19] LABS: COVID AG,FIA SOURCE NASAL SWAB
[2022-01-22 08:13] VITALS: BP 145/99
[2022-01-22] MEDS: FLUoxetine HCL 20 MG CAPSULE PO SCH (08:18)
[2022-01-22] MEDS: FOLIC ACID 1 MG TABLET PO SCH (08:19)
[2022-01-22] MEDS: OLANZapine 5 MG RAPDIS TABLET PO PRN (08:19)
[2022-01-22] MEDS: MULTIVITAMINS WITH MINERALS, THERAPEUTIC TABLET PO SCH (08:19)
[2022-01-22] MEDS: THIAMINE 100 MG TABLET PO SCH ×2 (08:19→16:17)
[2022-01-22] MEDS: LORazepam 2 MG TABLET PO PRN ×2 (08:19→21:01)
[2022-01-22] MEDS: GABAPENTIN 300 MG CAPSULE PO SCH ×3 (08:19→16:17)
[2022-01-22] MEDS: NALTREXONE HCL 50 MG TABLET PO SCH (08:19)
[2022-01-22] MEDS: OMEGA-3/DHA/EPA/FISH OIL 1,000 MG CAPSULE PO SCH (08:19)
[2022-01-22] MEDS ORDERED: NICOTINE 21 MG/24 HOUR PATCH TD PRN (13:45)
[2022-01-22 14:03] LABS: APPEARANCE,URINE HAZY (CLEAR); BILIRUBIN,URINE NEGATIVE (NEGATIVE); GLUCOSE, URINE (UA) NEGATIVE (NEGATIVE); KETONES,URINE NEGATIVE (NEGATIVE); LEUKOCYTE ESTERASE ,URINE LARGE (NEGATIVE); NITRATE,URINE NEGATIVE (NEGATIVE); OCCULT BLOOD,URINE TRACE (NEGATIVE); PH,URINE 6.5 (5.0-8.0); PROTEIN,URINE TRACE mg/dL (NEGATIVE); SPECIFIC GRAVITIY, URINE 1.023 (1.003-1.030); UROBILINOGEN,URINE <=1.0 mg/dL (<=1.0)
[2022-01-22 14:40] LABS: WBC,URINE 26-50 /HPF (0-5)
[2022-01-22 14:41] LABS: BACTERIA,URINE Moderate /HPF (None Seen); SQUAMOUS EPITHELIAL CELL,UR Many /LPF (None Seen)
[2022-01-22 16:12] VITALS: BP 130/75
[2022-01-22] MEDS ORDERED: OLAN10TA26 PO (16:12)
[2022-01-22] MEDS ORDERED: OMEG-135 PO (16:12)
[2022-01-22] MEDS ORDERED: NALT50TA PO (16:12)
[2022-01-22] MEDS ORDERED: MELA5TAB40 PO (16:12)
[2022-01-22] MEDS ORDERED: PROZ20 PO (16:12)
[2022-01-22] MEDS ORDERED: GABA-1181 PO (16:12)
[2022-01-22] MEDS: MELATONIN 5 MG TABLET PO SCH (21:13)
[2022-01-22] MEDS: OLANZapine 10 MG RAPDIS TABLET PO SCH (21:13)
[2022-01-23] MEDS: MULTIVITAMINS WITH MINERALS, THERAPEUTIC TABLET PO SCH (09:08)
[2022-01-23] MEDS: FOLIC ACID 1 MG TABLET PO SCH (09:08)
[2022-01-23] MEDS: GABAPENTIN 300 MG CAPSULE PO SCH ×2 (09:08→13:10)
[2022-01-23] MEDS: THIAMINE 100 MG TABLET PO SCH ×2 (09:08→18:39)
[2022-01-23] MEDS: NALTREXONE HCL 50 MG TABLET PO SCH (09:08)
[2022-01-23] MEDS: OMEGA-3/DHA/EPA/FISH OIL 1,000 MG CAPSULE PO SCH (09:08)
[2022-01-23] MEDS: FLUoxetine HCL 20 MG CAPSULE PO SCH (09:08)
[2022-01-23] MEDS: NITROFURANTOIN MONOHYD/M-CRYST 100 MG CAPSULE [MACROBID] PO SCH ×2 (09:08→18:39)
[2022-01-23 13:09] VITALS: BP 132/65
[2022-01-23] MEDS: GABAPENTIN 400 MG CAPSULE PO SCH (18:39)
[2022-01-23 19:22] LABS: COVID AG,FIA SOURCE NASOPHARYNGEAL
[2022-01-23] MEDS: OLANZapine 10 MG RAPDIS TABLET PO SCH (21:00)
[2022-01-23] MEDS: MELATONIN 5 MG TABLET PO SCH (21:00)
[2022-01-24] MEDS: NALTREXONE HCL 50 MG TABLET PO SCH (09:19)
[2022-01-24] MEDS: MULTIVITAMINS WITH MINERALS, THERAPEUTIC TABLET PO SCH (09:19)
[2022-01-24] MEDS: GABAPENTIN 400 MG CAPSULE PO SCH ×3 (09:20→17:15)
[2022-01-24] MEDS: FLUoxetine HCL 20 MG CAPSULE PO SCH (09:20)
[2022-01-24] MEDS: OMEGA-3/DHA/EPA/FISH OIL 1,000 MG CAPSULE PO SCH (09:20)
[2022-01-24] MEDS: NITROFURANTOIN MONOHYD/M-CRYST 100 MG CAPSULE [MACROBID] PO SCH ×2 (09:20→17:16)
[2022-01-24 09:59] VITALS: BP 140/85
[2022-01-24 16:19] VITALS: BP 109/72
[2022-01-24] MEDS: OLANZapine 10 MG RAPDIS TABLET PO SCH (20:08)
[2022-01-24] MEDS: MELATONIN 5 MG TABLET PO SCH (20:08)
[2022-01-25 08:00] VITALS: BP 107/76
[2022-01-25] MEDS: NITROFURANTOIN MONOHYD/M-CRYST 100 MG CAPSULE [MACROBID] PO SCH ×2 (09:36→17:04)
[2022-01-25] MEDS: MULTIVITAMINS WITH MINERALS, THERAPEUTIC TABLET PO SCH (09:36)
[2022-01-25] MEDS: NALTREXONE HCL 50 MG TABLET PO SCH (09:36)
[2022-01-25] MEDS: GABAPENTIN 400 MG CAPSULE PO SCH ×3 (09:37→17:04)
[2022-01-25] MEDS: OMEGA-3/DHA/EPA/FISH OIL 1,000 MG CAPSULE PO SCH (09:37)
[2022-01-25] MEDS: FLUoxetine HCL 20 MG CAPSULE PO SCH (09:37)
[2022-01-25 16:00] VITALS: BP 108/62
[2022-01-25] MEDS: LORazepam 2 MG TABLET PO PRN (17:04)
[2022-01-25] MEDS: MELATONIN 5 MG TABLET PO SCH (20:36)
[2022-01-25] MEDS: OLANZapine 10 MG RAPDIS TABLET PO SCH (20:36)
[2022-01-25] MEDS: DIVALPROEX SODIUM 500 MG ER TABLET PO SCH (21:00)
[2022-01-26] MEDS: NALTREXONE HCL 50 MG TABLET PO SCH (08:13)
[2022-01-26] MEDS: OMEGA-3/DHA/EPA/FISH OIL 1,000 MG CAPSULE PO SCH (08:13)
[2022-01-26] MEDS: GABAPENTIN 400 MG CAPSULE PO SCH ×3 (08:13→17:05)
[2022-01-26] MEDS: FLUoxetine HCL 20 MG CAPSULE PO SCH (08:13)
[2022-01-26] MEDS: MULTIVITAMINS WITH MINERALS, THERAPEUTIC TABLET PO SCH (08:14)
[2022-01-26] MEDS: NITROFURANTOIN MONOHYD/M-CRYST 100 MG CAPSULE [MACROBID] PO SCH ×2 (08:14→17:05)
[2022-01-26 09:26] VITALS: BP 107/59
[2022-01-26 16:10] VITALS: BP 109/69
[2022-01-26] MEDS: DIVALPROEX SODIUM 500 MG ER TABLET PO SCH (20:14)
[2022-01-26] MEDS: OLANZapine 10 MG RAPDIS TABLET PO SCH (20:15)
[2022-01-26] MEDS: MELATONIN 5 MG TABLET PO SCH (20:15)
[2022-01-27 08:49] VITALS: BP 118/62
[2022-01-27] MEDS: GABAPENTIN 400 MG CAPSULE PO SCH ×3 (09:48→16:28)
[2022-01-27] MEDS: OMEGA-3/DHA/EPA/FISH OIL 1,000 MG CAPSULE PO SCH (09:48)
[2022-01-27] MEDS: FLUoxetine HCL 20 MG CAPSULE PO SCH (09:49)
[2022-01-27] MEDS: MULTIVITAMINS WITH MINERALS, THERAPEUTIC TABLET PO SCH (09:49)
[2022-01-27] MEDS: NALTREXONE HCL 50 MG TABLET PO SCH (09:50)
[2022-01-27] MEDS: NITROFURANTOIN MONOHYD/M-CRYST 100 MG CAPSULE [MACROBID] PO SCH ×2 (09:50→16:34)
[2022-01-27 16:28] VITALS: BP 92/58
[2022-01-27] MEDS: DIVALPROEX SODIUM 500 MG ER TABLET PO SCH (20:21)
[2022-01-27] MEDS: MELATONIN 5 MG TABLET PO SCH (20:21)
[2022-01-27] MEDS: OLANZapine 10 MG RAPDIS TABLET PO SCH (20:21)
[2022-01-28 08:19] VITALS: BP 104/52
[2022-01-28] MEDS: OMEGA-3/DHA/EPA/FISH OIL 1,000 MG CAPSULE PO SCH (08:31)
[2022-01-28] MEDS: MULTIVITAMINS WITH MINERALS, THERAPEUTIC TABLET PO SCH (08:32)
[2022-01-28] MEDS: FLUoxetine HCL 20 MG CAPSULE PO SCH (08:33)
[2022-01-28] MEDS: GABAPENTIN 400 MG CAPSULE PO SCH ×3 (08:33→16:36)
[2022-01-28] MEDS: NALTREXONE HCL 50 MG TABLET PO SCH (08:33)
[2022-01-28] MEDS ORDERED: DIVA-80 PO (16:28)
[2022-01-28 16:58] VITALS: BP 94/54
[2022-01-28] MEDS: DIVALPROEX SODIUM 500 MG ER TABLET PO SCH (20:43)
[2022-01-28] MEDS: OLANZapine 10 MG RAPDIS TABLET PO SCH (20:43)
[2022-01-28] MEDS: MELATONIN 5 MG TABLET PO SCH (20:43)
[2022-01-29 08:11] VITALS: BP 133/76
[2022-01-29] MEDS: MULTIVITAMINS WITH MINERALS, THERAPEUTIC TABLET PO SCH (09:10)
[2022-01-29] MEDS: FLUoxetine HCL 20 MG CAPSULE PO SCH (09:10)
[2022-01-29] MEDS: GABAPENTIN 400 MG CAPSULE PO SCH ×2 (09:10→14:06)
[2022-01-29] MEDS: OMEGA-3/DHA/EPA/FISH OIL 1,000 MG CAPSULE PO SCH (09:10)
[2022-01-29] MEDS: NALTREXONE HCL 50 MG TABLET PO SCH (09:10)
== END 2022-01-29 15:15 | disposition home or self-care (01) | DRG 750 ==
LOC: EMS 03:29 → 3EC 08:48
PROVIDERS: ADMIT Psychiatry & Neurology Psychiatry; ATTEND Psychiatry & Neurology Psychiatry
DX: F25.1 Schizoaffective disorder, depressive type (principal); R45.851 Suicidal ideations; I50.9 Heart failure, unspecified; R47.01 Aphasia; I11.0 Hypertensive heart disease with heart failure; E78.00 Pure hypercholesterolemia, unspecified; F17.210 Nicotine dependence, cigarettes, uncomplicated; F41.9 Anxiety disorder, unspecified; J44.9 Chronic obstructive pulmonary disease, unspecified; Z20.822 Contact with and (suspected) exposure to COVID-19; L08.9 Local infection of the skin and subcutaneous tissue, unspecified; E87.6 Hypokalemia; F14.90 Cocaine use, unspecified, uncomplicated; M25.569 Pain in unspecified knee; G89.29 Other chronic pain; Z55.9 Problems related to education and literacy, unspecified; Z59.9 Problem related to housing and economic circumstances, unspecified; Z63.9 Problem related to primary support group, unspecified; Z65.3 Problems related to other legal circumstances; Z87.01 Personal history of pneumonia (recurrent); Z79.899 Other long term (current) drug therapy
CPT/HCPCS: 80048; 80053; 80061; 80074; 80164; 81001; 83036; 84443; 85025; 86592; 87086; 99285; G0480; Q9967

== ENCOUNTER 2022-01-30 09:08 | Emergency (ER) | payer MEDICAID, OTHER ==
[~2022-01-30 09:08] MED LIST changes: +DIVA-80 PO; +GABA-1181 PO; -IBUP-2071 PO; -IPRA3AMP24 IH; +MELA5TAB40 PO; -METH-659 PO; +NALT50TA PO; +OLAN10TA26 PO; +OMEG-135 PO; +PROZ20 PO
== END 2022-01-30 10:32 | disposition left against medical advice (07) ==
LOC: EMS 09:08
DX: Z53.21 Procedure and treatment not carried out due to patient leaving prior to being seen by health care provider (principal)